=== PATIENT | male | born 1980 | race Caucasian/White ===

== ENCOUNTER 2017-05-08 03:42 | Inpatient (IN) | payer BC ==
[~2017-05-08] VITALS: Ht 182.9 cm; Wt 81.6 kg
[2017-05-08] MEDS ORDERED: ONDANSETRON 4 MG/2 ML VIAL IV ONE (04:15)
[2017-05-08] MEDS ORDERED: MORPHINE SULFATE 2 MG/1 ML DISP.SYRIN IV ONE (04:15)
[2017-05-08] MEDS ORDERED: IV NORMAL SALINE 1000 ML BAG IV ONE (04:15)
[2017-05-08] MEDS ORDERED: MORPHINE SULFATE 4 MG/1 ML DISP.SYRIN ONE (04:47)
[2017-05-08] MEDS ORDERED: ONDANSETRON 4 MG/2 ML VIAL ONE (04:47)
[2017-05-08 04:49] LABS: *BILIRUBIN,URIN NEGATIVE (NEGATIVE); *BLOOD, URINE NEGATIVE (NEGATIVE); *CLARITY,URINE CLEAR (CLEAR); *COLOR,URINE YELLOW (YELLOW); *KETONES,URINE NEGATIVE (NEGATIVE); *PROTEIN,URINE TRACE (NEGATIVE); *UROBILINOGEN,URINE 0.2 E.U./dl (NORMAL); LEUKOCYTE ESTERASE ,URINE NEGATIVE (NEGATIVE); NITRITE, URINE NEGATIVE (NEGATIVE); UGLUCOSE NEGATIVE (NEGATIVE)
[2017-05-08 04:49] LABS: BASOPHILS % (AUTO) 0.6 % (0.0-2.0); EOSINOPHILS # (AUTO) 0.8 K/uL (0.0-0.7); EOSINOPHILS % (AUTO) 10.5 % (0.0-7.0); HEMATOCRIT 51.5 % (40-50); LYMPHOCYTES # (AUTO) 2.2 K/UL (0.8-4.8); LYMPHOCYTES % (AUTO) 28.2 % (20.5-51.5); MEAN CORPUSCULAR HGB CONC 33 g/dL (32.0-37.0); MEAN CORPUSCULAR VOLUME 87.7 FL (82.0-92.0); MONOCYTES # (AUTO) 0.5 K/UL (0.1-1.30); MONOCYTES % (AUTO) 6.8 % (0.0-11.0); NEUTROPHILS # (AUTO) 4.4 K/UL (1.8-8.9); NEUTROPHILS % (AUTO) 53.9 % (38.5-71.5); PLATELET COUNT (AUTO) 243 K/UL (150-450); RED BLOOD CELL COUNT(AUTO) 5.88 MIL/UL (4.7-6.1); WHITE BLOOD COUNT (AUTO) 7.9 K/UL (4.0-11.2)
[2017-05-08 04:58] LABS: BACTERIA,URINE NONE SEEN /HPF (NONE SEEN); MUCUS,URINE MODERATE /LPF (0-FEW); RBC,URINE 0-3 /HPF (0-3); SQUAMOUS EPITHELIAL CELL,UR FEW /HPF (NONE SEEN); WBC,URINE 0-3 /HPF (0-3)
--- NOTE | 2017-05-08 04:59 | NUR ---
Pt to CT via w/c
[2017-05-08 05:10] LABS: BILIRUBIN,DIRECT 0.1 mg/dL (0.0-0.2); BILIRUBIN,TOTAL 0.4 mg/dL (0.2-1.0); CREATININE 1.1 mg/dL (0.6-1.3); POTASSIUM 3.4 mmol/L (3.5-5.1); TOTAL PROTEIN, SERUM 7.5 g/dL (6.4-8.2)
--- NOTE | 2017-05-08 05:10 | NUR ---
pt returned from ct via w/c
[2017-05-08] MEDS ORDERED: IV NS 1000 ML 1,000 ML IV PRN (05:22)
[2017-05-08] MEDS ORDERED: Z GUARD REMEDY PASTE 57 GM TUBE TOP PRN (05:30)
[2017-05-08] MEDS ORDERED: MORPHINE SULFATE 2 MG/1 ML DISP.SYRIN IV PRN (05:30)
[2017-05-08] MEDS ORDERED: MAGNESIUM HYDROXIDE 30 ML LIQUID UDC PO PRN (05:30)
[2017-05-08] MEDS ORDERED: ACETAMINOPHEN 325 MG TABLET PO PRN (05:30)
[2017-05-08] MEDS ORDERED: POTASSIUM CHLORIDE 50 ML IV SCH ×2 (05:30→10:00)
[2017-05-08] MEDS ORDERED: ONDANSETRON 4 MG/2 ML VIAL IV PRN (05:30)
[2017-05-08] MEDS ORDERED: HYDROCODONE/APAP 5-325MG TABLET PO PRN (05:30)
--- NOTE | 2017-05-08 05:33 | NUR ---
Belongings list completed. Pt refusing to place wallet and ceballos amount of $222 in safe. Pt wanting to keep both with himself. Completion of belongings list witnessed and cosigned by EDDIE Arreola
[2017-05-08] MEDS ORDERED: POTASSIUM CHLORIDE 100 ML ONE (05:35)
[2017-05-08 05:40] LABS: ETHANOL < 3 MG/DL (0-0)
--- NOTE | 2017-05-08 06:12 | NUR ---
Pt. admitted to [facility] , under care of Dr. YAA DUEÑAS, Belongs List completed, Pt alert, oriented x 4, no resp distress noted or reported upon transfer assessment...
--- NOTE | 2017-05-08 06:35 | NUR ---
Admitted patient from ER via [facility] with admitting DX: Acute pancreatitis. AAOx4. Denies any pain at this time. Routine admission care done. Plan of care initiated. Safety measure and fall precaution initiated. VS taken and recorded.
[2017-05-08 06:59] VITALS: BP 110/67
[2017-05-08] MEDS ORDERED: PANTOPRAZOLE SODIUM 40 MG TABLET.DR PO SCH (07:00)
--- NOTE | 2017-05-08 07:04 | NUR ---
Bedside reporting with EDDIE Harris
--- NOTE | 2017-05-08 09:12 | NUR ---
Confirmed with pharmacy that IV potassium 100 ml was given by ER and the floor nurse. No need to give additional dose of potassium IV PB
[2017-05-08] MEDS: MORPHINE SULFATE 4 MG/1 ML DISP.SYRIN IV PRN ×4 (09:25→22:08)
[2017-05-08] MEDS: METRONIDAZOLE 500 MG/NS 100ML 500 MG in PREMIXED 1 EACH IV SCH ×3 (10:50→22:08)
[2017-05-08] MEDS: LEVOFLOXACIN 500 MG/D5W 500 MG in PREMIXED 1 EACH IV SCH (10:51)
[2017-05-08 11:12] VITALS: BP 111/65
--- NOTE | 2017-05-08 13:11 | NUR ---
TEXTED DR. JAIN FOR MRI APPROVAL.
--- NOTE | 2017-05-08 14:45 | NUR ---
Pt picked up by the ambulance, pt stable, breathing equal and unlabored able to verbalized needs. Report given to the ambulance. Health teaching done.
[2017-05-08 14:46] LABS: *AMPHETAMINE, URINE NEGATIVE (NEGATIVE); *BARBITURATE, URINE NEGATIVE (NEGATIVE); *CANNABINOID, URINE NEGATIVE (NEGATIVE); *COCCAINE, URINE NEGATIVE (NEGATIVE); *OPIATE, URINE NEGATIVE (NEGATIVE); *PHENCYCLIDINE SCREEN,URINE NEGATIVE (NEGATIVE)
[2017-05-08 15:09] VITALS: BP 100/72
[2017-05-08 20:00] VITALS: BP 118/83
--- NOTE | 2017-05-08 20:00 | NUR ---
RECEIVED PATIENT AWAKE IN BED WITH VISITORS AT BEDSIDE. PATIENT IS A/O X4. DENIES PAIN OR DISCOMFORT AT THIS TIME. NO RESP. DISTRESS NOTED. H/L INTACT AND PATENT, NOTED TO LEFT AC #20 GAUGE AND LEFT FA #20 GAUGE. CALL LIGHT IN REACH. ALL NEEDS ATTENDED. WILL CONTINUE TO MONITOR AND ASSESS. PATIENT NPO ORDERED.
[2017-05-08] MEDS: POTASSIUM CHLORIDE 20 MEQ in IV D5/ 0.9% NACL 1,000 ML IV PRN (22:05)
--- NOTE | 2017-05-08 22:05 | NUR ---
PATIENT STARTED ON CONTINUOS IVF ORDERED PER DR. BERRIOS. PATIENT ALSO GIVEN MORPHINE 2MG IV PER RN. ALL NEEDS ATTENDED. WILL CONTINUE TO MONITOR.
--- NOTE | 2017-05-09 05:30 | NUR ---
PATIENT AWAKE IN BED. SLEPT WELL THROUGHOUT THE NIGHT. PATIENT GIVEN MORPHINE 2MG IV PRN FOR PAIN PER [employer]. VSS. IVF INFUSING WELL TO LEFT FA. CALL LIGHT IN REACH. ALL NEEDS ATTENDED. WILL CONTINUE TO MONITOR.
[2017-05-09] MEDS: MORPHINE SULFATE 4 MG/1 ML DISP.SYRIN IV PRN ×2 (05:32→10:07)
[2017-05-09] MEDS: METRONIDAZOLE 500 MG/NS 100ML 500 MG in PREMIXED 1 EACH IV SCH (06:00)
[2017-05-09 06:28] VITALS: BP 107/70
[2017-05-09 07:01] LABS: BASOPHILS % (AUTO) 0.6 % (0.0-2.0); EOSINOPHILS % (AUTO) 15.9 % (0.0-7.0); HEMATOCRIT 44.6 % (40-50); HEMOGLOBIN 14.7 G/DL (14.0-18.0); LYMPHOCYTES # (AUTO) 1.7 K/UL (0.8-4.8); LYMPHOCYTES % (AUTO) 28.1 % (20.5-51.5); MEAN CORPUSCULAR HEMOGLOBIN 29.5 UUG (27.0-31.0); MEAN CORPUSCULAR HGB CONC 33 g/dL (32.0-37.0); MEAN CORPUSCULAR VOLUME 89.4 FL (82.0-92.0); MONOCYTES # (AUTO) 0.4 K/UL (0.1-1.30); MONOCYTES % (AUTO) 7.3 % (0.0-11.0); NEUTROPHILS # (AUTO) 2.9 K/UL (1.8-8.9); NEUTROPHILS % (AUTO) 48.1 % (38.5-71.5); PLATELET COUNT (AUTO) 211 K/UL (150-450); RED BLOOD CELL COUNT(AUTO) 4.99 MIL/UL (4.7-6.1)
[2017-05-09 07:20] LABS: THYROID STIMULATING HORMONE 1.423 mIU/mL (0.358-3.740)
--- NOTE | 2017-05-09 07:20 | NUR ---
RECEIVED REPORT FROM JUDICIAL REGISTRAR NURSE, PATIENT IN BED, AWAKE. SAFETY CHECK, BED IN LOW POSITION, SIDE RAILS UP X2. PATIENT COMPLAINING OF PAIN IN NECK. PROVIDED PATIENT WITH WARM COMPRESS.
[2017-05-09 07:57] LABS: BILIRUBIN,TOTAL 0.5 mg/dL (0.2-1.0); MAGNESIUM 1.9 mg/dL (1.8-2.4); PHOSPHOROUS 3.9 mg/dL (2.5-4.9); POTASSIUM 4.1 mmol/L (3.5-5.1); TOTAL PROTEIN, SERUM 5.9 g/dL (6.4-8.2)
[2017-05-09 08:08] LABS: CREATININE 0.9 mg/dL (0.6-1.3)
[2017-05-09] MEDS ORDERED: PANTOPRAZOLE SODIUM 40 MG VIAL IV SCH (09:00)
[2017-05-09] MEDS: POTASSIUM CHLORIDE 20 MEQ in IV D5/ 0.9% NACL 1,000 ML IV PRN (09:28)
[2017-05-09] MEDS ORDERED: MAGNESIUM HYDROXIDE 30 ML LIQUID UDC PO ONE (10:30)
[2017-05-09] MEDS: LEVOFLOXACIN 500 MG/D5W 500 MG in PREMIXED 1 EACH IV SCH (10:50)
[2017-05-09 11:07] VITALS: BP 113/73
[2017-05-09] MEDS ORDERED: LEVO500T2 PO (12:14)
[2017-05-09] MEDS ORDERED: METR500T4 PO (12:14)
[2017-05-09] MEDS ORDERED: LACTULOSE 20 G/30 ML LIQUID UDC PO ONE (13:15)
[2017-05-09] MEDS ORDERED: METRONIDAZOLE 500 MG TABLET PO SCH (14:00)
--- NOTE | 2017-05-09 15:00 | NUR ---
PATIENT HAD A BOWEL MOVEMENT AND DISCHARGE WAS CLEARED BY HUDSON Harris
[2017-05-09 15:08] VITALS: BP 103/68
--- NOTE | 2017-05-09 16:15 | NUR ---
PATIENT WAS GIVEN CONSULTATION BY PHARMACY ABOUT NEW MEDICATIONS, PERSONAL BELONGINGS RECONCILED, AND PATIENT TRANSPORTED TO [facility] WITH WHEELCHAIR.
[2017-05-10] MEDS ORDERED: LEVOFLOXACIN 500 MG TABLET PO SCH (12:00)
== END 2017-05-09 16:10 | disposition home or self-care (01) | DRG 917 ==
LOC: ER 03:46 → MED 06:03
PROVIDERS: ADMIT Contractor; ATTEND Contractor
DX: T39.311A Poisoning by propionic acid derivatives, accidental (unintentional), initial encounter (principal); K85.30 Drug induced acute pancreatitis without necrosis or infection; Y92.89 Other specified places as the place of occurrence of the external cause; Z80.3 Family history of malignant neoplasm of breast; K59.00 Constipation, unspecified; E87.6 Hypokalemia; G89.29 Other chronic pain; D18.03 Hemangioma of intra-abdominal structures; M50.822 Other cervical disc disorders at C5-C6 level; K76.9 Liver disease, unspecified; K42.9 Umbilical hernia without obstruction or gangrene
CPT/HCPCS: 36415; 71010; 74000; 76705; 80307; 83690; 83735; 84100; 84153; 84443; 85025; 87086; A4663; C9113; G0480; J1956; J2270; J2405; J3480; J3490; J7030; J7040; J7042; J7050